=== PATIENT | male | born 1995 | race Caucasian/White ===

== ENCOUNTER 2017-07-22 18:31 | Emergency (ER) | payer SELFPAY ==
[~2017-07-22] VITALS: Ht 182.9 cm; Wt 90.0 kg
[2017-07-22 18:41] VITALS: BP 127/64; PULSE 86; RESP 16; TEMP 99; O2SAT 97
[2017-07-22 20:31] VITALS: BP 143/70; PULSE 76; RESP 18; O2SAT 99
--- NOTE | 2017-07-22 20:36 | PD ---
HPI Chief Complaint: Head Injury Time Seen by Provider: 20:29 Travel History International Travel<30 days: No Contact w/Intl Traveler<30days: No Traveled to known affect area: No History of Present Illness HPI [place], he denies hitting head or anything but experienced the sensation of lightheadedness that he experienced when he suffered a concussion about 2 years ago....witnesses described him as appearing woosy, but no sz activity. no loc, no bht. symptoms resolved now. pt denies any alleviating/aggravating factors. pt denies assoc factors of fever/goldberg /cp/abdpain/backpain/rash/n/v/d at this time ALLASPIRIN: PMHX:OCNCUSSION PSHX:DENIES PFSH Past Medical History Diabetes: No (HYPOGLYCEMIC) Social History Tobacco Use: No Allergies-Medications (Allergen,Severity, Reaction): Coded Allergies: aspirin (Verified Allergy, Severe, SWELLING, 07/22/17) Reported Meds & Prescriptions Reported Meds & Active Scripts Active Fioricet (Qhdqiltmya-Yqpnovyogsssa-Tjdikoth) 50-300-40 Mg Cap 1-2 Cap PO Q6H PRN Review of Systems General / Constitutional: No: Fever Eyes: No: Visual changes HENT: Positive: Headaches Cardiovascular: No: Chest Pain or Discomfort Respiratory: No: Shortness of Breath Gastrointestinal: No: Abdominal Pain Genitourinary: No: Dysuria Musculoskeletal: No: Pain Skin: No Rash Neurologic: No: Weakness Psychiatric: No: Depression Endocrine: No: Polydipsia Hematologic/Lymphatic: No: Easy Bruising Physical Exam Narrative GENERAL: SKIN: Warm and dry. HEAD: Atraumatic. Normocephalic. EYES: Pupils equal and round. No scleral icterus. No injection or drainage. ENT: No nasal bleeding or discharge. Mucous membranes pink and moist. NECK: Trachea midline. No JVD. CARDIOVASCULAR: Regular rate and rhythm. RESPIRATORY: No accessory muscle use. Clear to auscultation. Breath sounds equal bilaterally. GASTROINTESTINAL: Abdomen soft, non-tender, nondistended. MUSCULOSKELETAL: Extremities without clubbing, cyanosis, or edema. No obvious deformities. NEUROLOGICAL: Awake and alert. No obvious cranial nerve deficits. Motor grossly within normal limits. Five out of 5 muscle strength in the arms and legs. Normal speech. PSYCHIATRIC: Appropriate mood and affect; insight and judgment normal. Data Data Last Documented VS Vital Signs Date Time Temp Pulse Resp B/P (MAP) Pulse Ox O2 Delivery O2 Flow Rate FiO2 07/22/17 22:12 77 18 139/54 (82) 97 07/22/17 20:31 Room Air 07/22/17 18:[address] Brain W/O Iv Contrast(Rout) (07/22/17 20:38) Blood Glucose (07/22/17 20:44) Ed Discharge Order (07/22/17 21:20) MDM Medical Decision Making Medical Screen Exam Complete: Yes Emergency Medical Condition: Yes Medical Record Reviewed: Yes Differential Diagnosis ICH V SKULL FX V HYPOGLYCEMIA Narrative Course CT HEAD NEG FOR ICH, NO SINUS DZ, NO MASSES....NL GLUCOSE ALSO Diagnosis Primary Impression: Transient confusion Patient Instructions: General Instructions Scripts Untoalboud-Zjkljclqvckcm-Hyobdxna (Fioricet) 50-300-40 Mg Cap 1-2 CAP PO Q6H Y for HEADACHE, #12 CAP 0 Refills Prov: Yandel Garcia MD 07/22/17 Disposition: 01 DISCHARGE HOME Condition: Stable Yandel Garcia MD Jul 22, 2017 20:36
[2017-07-22 20:54] VITALS: BP 194/118; RESP 22
--- NOTE | 2017-07-22 21:25 | RADRPT ---
EXAM DATE/TIME: 07/22/2017 20:57 [facility] COMPARISON: No previous studies available for comparison. INDICATIONS : [place]uma. [place] RADIATION DOSE: 57.24 CTDIvol (mGy) MEDICAL HISTORY : None SURGICAL HISTORY : None. ENCOUNTER: Initial ACUITY: 1 day PAIN SCALE: 8/10 LOCATION: Bilateral occipital TECHNIQUE: Multiple contiguous axial images were obtained of the head. Using automated exposure control and adj ustment of the mA and/or kV according to patient size, radiation dose was kept as low as reasonably a chievable to obtain optimal diagnostic quality images. DICOM format image data is available electro nically for review and comparison. FINDINGS: CEREBRUM: The ventricles are normal for age. No evidence of midline shift, mass lesion, hemorrhage or acute in farction. No extra-axial fluid collections are seen. POSTERIOR FOSSA: The cerebellum and brainstem are intact. The 4th ventricle is midline. The cerebellopontine angle i s unremarkable. EXTRACRANIAL: The visualized portion of the orbits is intact. SKULL: The calvaria is intact. No evidence of skull fracture. CONCLUSION: 1. No acute intracranial abnormalities. Talat Lowe MD on July 22, 2017 at 21:22 Board Certified Radiologist. This report was verified electronically.
[2017-07-22] MEDS ORDERED: BUTA1CAP PO (22:04)
[2017-07-22 22:12] VITALS: BP 139/54
== END 2017-07-22 22:14 | disposition home or self-care (01) ==
LOC: PHED 18:31
DX: R41.0 Disorientation, unspecified (principal)
CPT/HCPCS: 70450; 99283